=== PATIENT | female | born 1955 | race Caucasian/White ===

== ENCOUNTER 2016-09-16 18:43 | Emergency (ER) | payer MEDICARE, MEDICAID ==
[2016-09-16] MEDS ORDERED: ASPIRIN 81 MG CHEW TAB ONE (19:20)
== END 2016-09-16 22:53 | disposition home or self-care (01) ==
LOC: ER 18:43
DX: R07.2 Precordial pain (principal); R00.2 Palpitations; I48.91 Unspecified atrial fibrillation; J44.9 Chronic obstructive pulmonary disease, unspecified; I10 Essential (primary) hypertension; Z79.51 Long term (current) use of inhaled steroids; Z79.02 Long term (current) use of antithrombotics/antiplatelets
CPT/HCPCS: 36415; 71010; 80053; 82550; 83735; 84484; 85025; 85610; 85730; 93005